=== PATIENT | female | born 1955 | race Caucasian/White ===

== ENCOUNTER 2019-07-16 07:42 | Day surgery (SDC) | payer OTHER ==
[2019-07-16] VITALS (11 sets, daily range): BP systolic 129–171; BP diastolic 61–78; PULSE 69–90; RESP 16–20; Ht 149.9 cm; Wt 75.2 kg
[~2019-07-16] VITALS: Ht 149.9 cm; Wt 75.2 kg
[~2019-07-16 07:42] MED LIST: ATOR20TA38 PO; LISI-313 PO; METF100010 PO; NOVMIX SC
[2019-07-16] MEDS ORDERED: LIDOCAINE 2% (SDV) 5 ML INJ ONE (09:36)
[2019-07-16] MEDS ORDERED: MEPERIDINE 100 MG INJ ONE (09:36)
[2019-07-16] MEDS ORDERED: EPHEDrine SULFATE 50 MG/5 ML SYG ONE (09:36)
[2019-07-16] MEDS ORDERED: EPHEDrine 25 MG/5 ML SYG ONE (09:36)
[2019-07-16] MEDS ORDERED: PROPOFOL 20 ML ONE (09:36)
[2019-07-16] MEDS ORDERED: CLINDAMYCIN 900 MG (PMX) 50 ML IVPB ONE (10:01)
[2019-07-16] MEDS ORDERED: BUPIVACAINE 0.5% (SDV) 30 ML INJ ONE (10:05)
[2019-07-16] MEDS ORDERED: POLYMYXIN/BACITRACIN 1L IRRIG IRR ONE (11:10)
[2019-07-16] MEDS ORDERED: POLYMYXIN/BACITRACIN 1L IRRIG ONE (11:11)
[2019-07-16] MEDS ORDERED: METOCLOPRAMIDE 10 MG INJ ONE (11:14)
[2019-07-16] MEDS ORDERED: ONDANSETRON 4 MG INJ ONE (11:14)
[2019-07-16] MEDS ORDERED: METOCLOPRAMIDE 10 MG INJ IV PRN (12:00)
[2019-07-16] MEDS ORDERED: MEPERIDINE 25 MG INJ IV PRN (12:00)
[2019-07-16] MEDS ORDERED: FENTAnyl 50 MCG/ML VIAL IV PRN ×3 (12:00)
[2019-07-16] MEDS ORDERED: ONDANSETRON 4 MG INJ IV PRN (12:00)
[2019-07-16] MEDS ORDERED: hydrALAzine 20 MG INJ IV PRN (12:00)
[2019-07-16] MEDS ORDERED: MIDAZOLAM 1 MG/ML 2 ML INJ IV PRN (12:00)
[2019-07-16] MEDS ORDERED: EPHEDrine 25 MG/5 ML SYG IV PRN (12:00)
[2019-07-16] MEDS ORDERED: LABETALOL HCL 20MG INJ IV PRN (12:00)
[2019-07-16] MEDS ORDERED: DIPHENHYDRAMINE 50 MG INJ IV PRN (12:00)
== END 2019-07-16 16:30 | disposition home or self-care (01) ==
LOC: SDS 07:42
PROVIDERS: ATTEND Podiatrist Foot & Ankle Surgery
DX: M20.12 Hallux valgus (acquired), left foot (principal); M21.612 Bunion of left foot; M20.42 Other hammer toe(s) (acquired), left foot; E11.9 Type 2 diabetes mellitus without complications; I10 Essential (primary) hypertension; Z79.4 Long term (current) use of insulin
CPT/HCPCS: 28285; 28299; 73630; 82962; 88304; 88311; J0360; J2175; J2405; J2765